=== PATIENT | male | born 1945 | race Caucasian/White ===

== ENCOUNTER 2018-12-02 06:20 | Inpatient (IN) ==
--- NOTE | 2018-11-12 15:01 | Anesthesiology Consultation ---
Date of Service November 12, 2018 Assessment & Plan (1) Encounter for pre-operative examination: Patient with ankylosing spondylitis. Discussed both GA and SAB at [facility]. CHECK BSG AM DOS. Chart Review Chart Review: Acceptable Risk for Surgery (pending pre-op labs and surgeon- ordered PCP clearance 11/29 (Yamilet)) and Patient seen in Pre Admission Testing Teaching & Discussion Instructed NPO after midnight before surgery, except medications with 15 cc of water. Medication instructions provided according to the [facility] guidelines. History Surgery Operation Date: 12/02/18 07:00 Proposed Procedures p Left Anterior Total Hip Arthroplasty - Alexis Valenet DO Height/Weight Height: 6 ft 1 in Weight: 99.1 kg Allergies Allergy/AdvReac Type Severity Reaction Status Date / Time Penicillins Allergy Unknown UNKNOWN Verified 11/04/18 10:03 REACTION CHILD codeine AdvReac Mild Nausea Verified 11/04/18 10:03 Medications Home Medications Medication Instructions Recorded Confirmed Last Taken albuterol sulfate [Ventolin HFA] 1 puff INHALATION Q6H PRN 07/15/18 11/04/18 Unknown amlodipine 5 mg PO BID 07/15/18 11/04/18 Unknown aspirin [Aspirin Low Dose] 81 mg PO HS 07/15/18 11/04/18 Unknown finasteride 5 mg PO HS 07/15/18 11/04/18 Unknown folic acid 1 mg PO QAM 07/15/18 11/04/18 Unknown gabapentin 200 mg PO HS 07/15/18 11/04/18 Unknown gemfibrozil 600 mg PO QAM 07/15/18 11/04/18 Unknown glipizide 5 mg PO QAM 07/15/18 11/04/18 Unknown hydrocodone-acetaminophen [[place]] 1 tab PO Q6H PRN 07/15/18 11/04/18 Unknown ibuprofen-diphenhydramine cit 2 cap PO HS PRN 07/15/18 11/04/18 Unknown [Advil PM] infliximab-dyyb [Inflectra] 100 mg IV DIRECTED 07/15/18 11/04/18 Unknown labetalol 100 mg PO BID 07/15/18 11/04/18 Unknown levocetirizine 5 mg PO QAM 07/15/18 11/04/18 Unknown methotrexate sodium 6 tab PO WK 07/15/18 11/04/18 Unknown multivitamin 2 tab PO QAM 07/15/18 11/04/18 Unknown olmesartan-hydrochlorothiazide 1 tab PO QAM 07/15/18 11/04/18 Unknown omeprazole 20 mg PO QAM 07/15/18 11/04/18 Unknown simvastatin 40 mg PO HS 07/15/18 11/04/18 Unknown zolpidem [Ambien] 5 mg PO HS 07/15/18 11/04/18 Unknown melatonin 10 mg PO HS 11/04/18 11/04/18 Unknown metformin 500 mg PO BID 11/04/18 11/04/18 Unknown Past Medical History Medical History Ankylosing spondylitis Asthma CONTROLLED, USING ALBUTEROL MAYBE A FEW TIMES PER MONTH AT MOST. BPH (benign prostatic hyperplasia) Chronic back pain Chronic steroid use Degenerative disc disease Diabetes mellitus, type 2 NIDDM Diverticular disease GERD (gastroesophageal reflux disease) CONTROLLED Hyperlipidemia Hypertension Osteoarthritis Peripheral neuropathy RIGHT FOOT Rheumatoid arthritis Exercise / Class Metabolic Activity II 4-5 Yardwork/Stairs/Walk up hill (DENIES CP OR SOB WITH 1 FOS, DOES STAIRS AT HOME) Past Surgical History Surgical History History of back surgery X2 LUMBAR History of cardiac cath 2002= NO STENTS History of colonoscopy History of esophagogastroduodenoscopy (EGD) History of meniscectomy of left knee History of right hip replacement Hx of arthroscopic knee surgery RIGHT Hx of left cataract extraction Hx of right cataract extraction Hx of shoulder surgery LEFT SHOULDER SLAP Hx of tonsillectomy Nausea and vomiting after administration of anesthetic agent S/P right knee arthroscopy Past Anesthesia History No Hx of Anesthesia Complications (OTHER THAN PONV) and No Family Hx of Anesthesia Complications History of PONV No Hx of Motion Sickness and History of PONV (2/2 CODEINE) Social History Smoking Status: Never smoker Do You Dip or Chew Tobacco: No Hx Alcohol Use: No Hx Substance Use: No substance use type: does not use Review of Systems Pt denies any recent chest pain, shortness of breath, palpitations, cough, fever or URI. Physical Exam Vital Signs BP: 132/70 P: 59bpm SPO2: 98% RA T: 98.0 F R: 16 ENMT Mouth: no dental restorations, no chipped teeth and no loose teeth Thyromental Distance: < 3.5 Finger Breadths (3) Mallampati Class: II Neck normal visual inspection and + limited neck extension (mild limitation) Respiratory normal respiratory effort Auscultation: lungs clear to auscultation bilaterally and + bronchovesicular breath sounds Cardiovascular Rate/Rhythm: regular rate and regular rhythm Heart Sounds: no murmur Vessels: no carotid bruit Extremities: no edema Testing Laboratory Results Urine Color Yellow 11/12/18 15:21 Urine Appearance Clear (Clear) 11/12/18 15:21 Urine pH 5.0 (4.5-7.5) 11/12/18 15:21 Ur Specific [place] 1.023 (1.000-1.030) 11/12/18 15:21 Urine Protein 2+ (Negative) H 11/12/18 15:21 Urine Glucose (UA) Negative (Negative) 11/12/18 15:21 Urine Ketones Negative (Negative) 11/12/18 15:21 Urine Nitrite Negative (Negative) 11/12/18 15:21 Ur Leukocyte Esterase Negative (Negative) 11/12/18 15:21 Urine WBC (Auto) 0 /hpf (0-5) 11/12/18 15:21 Urine RBC (Auto) 0-4 /hpf (0-4) 11/12/18 15:21 U Hyaline Cast (Auto) 1-5 /lpf (0-5) 11/12/18 15:21 U Epithel Cells (Auto) 5-10 /lpf (0-5) H 11/12/18 15:21 Urine Bacteria (Auto) Negative (Negative) 11/12/18 15:21 11/11/18 WBC: 6.91 H/H: 12.7/36.7 PLATELETS: 277 SODIUM: 139 POTASSIUM: 3.9 CHLORIDE: 109 CO2: 23 BUN: 25 CREATININE: 1.40 GLUCOSE: 62 A1C: 6.5% Electrocardiogram Date: 07/24/18 Findings: + NSR @ (66bpm) With 1st degree A-V block. Chest X-Ray Date: 07/24/18 Findings: + NAD Cervical Spine Date: 07/24/18 IMPRESSION: 1. No evidence for C1-C2 instability. 2. Mild multilevel degenerative disc disease and facet arthrosis. Partial obscuration of C7.
[2018-11-12 15:56] LABS: Appearance Urine Clear (Clear); Bacteria Urine Automated Negative (Negative); Bilirubin Urine Negative (Negative); Blood Urine Negative (Negative); Color Urine Yellow; Glucose Urine UA Negative (Negative); Ketones Urine Negative (Negative); Leukocyte Esterase Urine Negative (Negative); Nitrite Urine Negative (Negative); Protein Urine 2+ (Negative); RBC Urine Automated 0-4 /hpf (0-4); Specific Gravity Urine 1.023 (1.000-1.030); Urobilinogen Urine Negative (Negative); WBC Urine Automated 0 /hpf (0-5)
[2018-11-12 16:00] LABS: Albumin Level 4.4 gm/dl (3.4-5.0); BUN Creatinine Ratio 19.8 (10-20); Calcium 9.3 mg/dl (8.5-10.1); Creatinine Clr Calc Pharmacy 56.6 ml/min; Est GFR (African American) 55.4; Est GFR (Non-African American) 47.8; Potassium 4.5 mmol/L (3.5-5.1)
[2018-11-12 16:03] LABS: Partial Thromboplastin Time 26.5 Seconds (21.0-31.0); Prothrombin Time 10.7 Seconds (9.0-12.0)
--- NOTE | 2018-11-30 12:41 | History & Physical Report ---
Date of Service November 30, 2018 Assessment & Plan (1) Degenerative joint disease of left hip: I have indicated the patient for left anterior total hip replacement. The risks, benefits and complications of surgery were explained to the patient which include but not limited to infection, acute blood loss, DVT/PE, injury to nerves, vessels, bone, soft tissue, arthrofibrosis, chronic pain, failure of the prosthesis, hip dislocation, leg length discrepancy, need for additional surgery, cardiac and pulmonary events and . The patient wished to proceed with surgery and informed consent was obtained at this time. We will plan for Xarelto post-operatively for DVT prophylaxis. Upon discharge the patient will be discharged home with home health services. Appropriate clearances by PCP and Rheum were obtained. History of Present Illness Chief Complaint: Left hip pain/djd Primary Care Provider: Richard Woodard The patient is a 73 year old male who presents with complaints of severe left hip pain and DJD. The patient has failed outpatient conservative treatments to this point which included NSAIDs, IA corticosteroid injection, home exercise/walking program. The patient's pain and limited function have progressed to the point where they severely hinder their activities of daily living and they no longer tolerate exercise programs. They are requesting to proceed with total hip replacement surgery. Allergies Allergy/AdvReac Type Severity Reaction Status Date / Time Penicillins Allergy Unknown UNKNOWN Verified 12/02/18 06:43 REACTION CHILD codeine AdvReac Mild Nausea Verified 12/02/18 06:43 Home Medications Home Medications Medication Instructions Recorded Confirmed Type albuterol sulfate [Ventolin HFA] 1 puff INHALATION Q6H PRN 07/15/18 11/04/18 History amlodipine 5 mg PO BID 07/15/18 11/04/18 History aspirin [Aspirin Low Dose] 81 mg PO HS 07/15/18 11/04/18 History finasteride 5 mg PO HS 07/15/18 11/04/18 History folic acid 1 mg PO QAM 07/15/18 11/04/18 History gabapentin 200 mg PO HS 07/15/18 11/04/18 History gemfibrozil 600 mg PO QAM 07/15/18 11/04/18 History glipizide 5 mg PO QAM 07/15/18 11/04/18 History hydrocodone-acetaminophen [[place]] 1 tab PO Q6H PRN 07/15/18 11/04/18 History ibuprofen-diphenhydramine cit 2 cap PO HS PRN 07/15/18 11/04/18 History [Advil PM] infliximab-dyyb [Inflectra] 100 mg IV DIRECTED 07/15/18 11/04/18 History labetalol 100 mg PO BID 07/15/18 11/04/18 History levocetirizine 5 mg PO QAM 07/15/18 11/04/18 History methotrexate sodium 6 tab PO WK 07/15/18 11/04/18 History multivitamin 2 tab PO QAM 07/15/18 11/04/18 History olmesartan-hydrochlorothiazide 1 tab PO QAM 07/15/18 11/04/18 History omeprazole 20 mg PO QAM 07/15/18 11/04/18 History simvastatin 40 mg PO HS 07/15/18 11/04/18 History zolpidem [Ambien] 5 mg PO HS 07/15/18 11/04/18 History melatonin 10 mg PO HS 11/04/18 11/04/18 History metformin 500 mg PO BID 11/04/18 11/04/18 History Past Med/Surg History Medical History Ankylosing spondylitis Asthma CONTROLLED, USING ALBUTEROL MAYBE A FEW TIMES PER MONTH AT MOST. BPH (benign prostatic hyperplasia) Chronic back pain Chronic steroid use Degenerative disc disease Diabetes mellitus, type 2 NIDDM Diverticular disease GERD (gastroesophageal reflux disease) CONTROLLED Hyperlipidemia Hypertension Osteoarthritis Peripheral neuropathy RIGHT FOOT Rheumatoid arthritis Surgical History History of back surgery X2 LUMBAR History of cardiac cath 2003= NO STENTS History of colonoscopy History of esophagogastroduodenoscopy (EGD) History of meniscectomy of left knee History of right hip replacement Hx of arthroscopic knee surgery RIGHT Hx of left cataract extraction Hx of right cataract extraction Hx of shoulder surgery LEFT SHOULDER SLAP Hx of tonsillectomy Nausea and vomiting after administration of anesthetic agent S/P right knee arthroscopy Social History Preferred Language: Macedonian Communication Ability: Effective 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: No Beliefs That Will Affect Care: None Current Living Situation: Alone Other Information That Helps Us Care for You: No Feels Safe at Home: Yes Safety Concerns: Feels Safe At This Time Smoking Status: Never smoker Do You Dip or Chew Tobacco: No ; Second Hand Exposure: No ; Tobacco Cessation Education Requested by Patient: No Hx Alcohol Use: No Hx Substance Use: No Review of Systems Review of Systems: All systems reviewed & are unremarkable except as noted in HPI & below Constitutional: as per Subjective / HPI Physical Exam Physical Exam: LLE NVSI +EHL/FHL/TA/GS SILT grossly, +2 DP pulse, compartments soft NT, limited painful ROM of the hip, antalgic gait. Constitutional: WD/WN, vitals as above Eyes: PERRL, conjunctivae normal, anicteric sclerae ENMT: external ear and nose normal, oropharynx normal Neck: trachea midline, no thyromegaly Respiratory: normal respiratory effort, lungs clear to auscultation Cardiovascular: RRR, no murmur, no edema Gastrointestinal (Abdomen): normal bowel sounds, soft, nontender, no hepatosplenomegaly Musculoskeletal: no cyanosis or clubbing, extremities motor strength 5/5 Skin: no rashes, warm and dry Neurologic: patellar DTR's 2+ bilat, sensation intact Psychiatric: A+Ox3, euthymic affect Lymphatic: no cervical or axillary lymphadenopathy Results & Data Diagnostic Findings Multiple views of the hip demonstrates severe DJD with complete loss of the joint space. +osteophytes, +sclerosis, +subchondral cysts.
[~2018-12-02 06:20] MED LIST: ACETAMINOPHEN 500 MG TAB PO SCH; CeleBREX 200 MG CAP PO SCH; FAMOTIDINE 20 MG TAB PO SCH; LR 500ML BOLUS, THEN 15ML/HR IV SCH; METOCLOPRAMIDE HCL 10 MG TABLET PO SCH; ROPIVACAINE 0.5% HCL/PF 150 MG, BUPIVACAINE 0.5% MPF 30 ML, EPINEPHrine 30MG/30ML (OR U... INSTIL SCH; TRANEXAMIC ACID 1,000 MG **IV Pre-op IV SCH; dexAMETHasone 4 MG TAB PO SCH
[2018-12-02] MEDS ORDERED: TRANEXAMIC ACID 1,000 MG **IV Intra-op IV SCH (06:30)
[2018-12-02] MEDS ORDERED: VANCOMYCIN CONSULT ACTIVE PRN ×3 (06:48→13:58)
--- NOTE | 2018-12-02 06:48 | History & Physical Bridge Note ---
Date of Service December 02, 2018 History & Physical Bridge Note I have examined the patient, reviewed the History & Physical and in the interval since the performance of the History & Physical I have noted the following changes of clinical significance: no changes noted
[2018-12-02] MEDS ORDERED: VANCOMYCIN HCL 1,500 MG in SODIUM CHLORIDE 0.9% 500 ML IV STA (06:51)
[2018-12-02] MEDS ORDERED: LIDOCAINE HCL 2% 2 ML VIAL/AMP(20MG/ML) INFIL ONE (06:56)
[2018-12-02] MEDS ORDERED: ONDANSETRON INJ 2 MG/ML 2 ML VIAL ONE (06:56)
[2018-12-02] MEDS ORDERED: fentaNYL citrate 100 MCG/2 ML VIAL ONE (06:56)
[2018-12-02] MEDS ORDERED: MIDAZOLAM HCL 1 MG/ML 2ML VIAL ONE ×3 (06:56→09:42)
[2018-12-02] MEDS ORDERED: PROPOFOL IV EMULSION 10 MG/ML 20 ML VIAL IV ONE ×2 (06:56→11:29)
[2018-12-02] MEDS ORDERED: DEXAMETHASONE SOD INJ 4 MG/ML VIAL ONE (06:56)
[2018-12-02] MEDS ORDERED: BUPIVACAINE 0.5 % 5 MG/1 ML PF 10ML VIAL ONE (07:01)
[2018-12-02] MEDS ORDERED: ePHEDrine sulfate 50 MG/ML AMP IV PRN (07:49)
[2018-12-02] MEDS ORDERED: fentaNYL citrate 100 MCG/2 ML VIAL IV PRN (07:49)
[2018-12-02] MEDS ORDERED: ATROPINE SULFATE 0.1 MG/ML 10ML SYR IV PRN (07:49)
[2018-12-02] MEDS ORDERED: ONDANSETRON INJ 2 MG/ML 2 ML VIAL IV PRN ×2 (07:49→13:58)
[2018-12-02] MEDS ORDERED: ORTHO JOINT ANESTHETIC ONE (08:23)
[2018-12-02] MEDS ORDERED: BACITRACIN INJ 50,000 UNIT VIAL ONE (08:23)
--- NOTE | 2018-12-02 11:09 | Post Operative Brief Note ---
Immediate Post Op Note v1 Date of Surgery December 02, 2018 Pre & Post Diagnosis Operation Date: 12/02/18 09:10 Pre-Op Diagnosis: left hip degenerative joint disease Post-Op Diagnosis: left hip degenerative joint disease Procedure Operation Date: 12/02/18 09:10 Actual Procedures p Left Anterior Total Hip Arthroplasty(Left) - Alexis Valente DO Surgeon Alexis Valente DO Picture Enlarger Wild Mac Estimated Blood Loss 150 Findings Consistent with Post-Op Diagnosis Fluids 1000 cc LR Specimens femoral head Anesthesia Type Spinal MAC Complications none Disposition Disposition: Recovery Room Overlapping Procedure I was present for: the critical portions of procedure. I was immediately available: during the entire case. Back up surgeon: was not required during procedure.
--- NOTE | 2018-12-02 11:29 | Operative Report ---
Post Operative Report Pre & Post Diagnosis Operation Date: 12/02/18 09:10 Pre-Op Diagnosis: left hip degenerative joint disease Post-Op Diagnosis: left hip degenerative joint disease Procedure Operation Date: 12/02/18 09:10 Actual Procedures p Left Anterior Total Hip Arthroplasty(Left) - Alexis Valente DO Surgeon Alexis Valente DO Hearing Therapy Director Wild Mac Estimated Blood Loss 150 Findings Consistent with Post-Op Diagnosis Fluids 1000 cc LR Specimens Femoral head Anesthesia Type Spinal MAC Complications none Disposition Disposition: Recovery Room Indications The patient is a 73-year-old male who presents with severe progressive left hip DJD who has failed outpatient conservative treatments. I indicated the patient for a anterior total hip replacement and the risks and benefits were explained in detail which include but not limited to infection, bleeding, blood clot, damage to surrounding bone, nerves, vessels, soft tissue, hip dislocation, failure of the prosthesis, leg length discrepancy, need for additional surgery and . The patient agreed to proceed with replacement of the hip and informed consent was obtained. Appropriate clearances were obtained. Description of Procedure COMPONENTS USED: [employer] hip system: Acetabulum size 54, femur size 8 high offset, femoral head 36+0, liner 3654, acetabular screw 25 mm x 1. DESCRIPTION OF PROCEDURE: Following satisfactory spinal anesthesia, the patient was placed supine on the OR table. The right leg was placed in the well leg stone and the right leg in the traction device. The left leg was prepared with ChloraPrep and draped sterilely. A surgical timeout was performed, patient identified and site jian verified. Appropriate antibiotics were given. A standard anterior approach in the interval between the sartorius and tensor muscles was performed. Dissection was carried down through subcutaneous tissues. Electrocautery was utilized for hemostasis. Circumflex femoral vessels were identified, tied and ligated. The anterior capsular fat pad was removed and the capsulotomy was performed revealing the arthritic femoral neck and head. A femoral neck cut was made with reciprocating saw and the bone fragments removed. The acetabular self-retraining retractor was placed. Acetabular reaming was completed under fluoroscopic guidance, a 54 shell was impacted into an anatomic position and secured with a dome screw. Local anesthetic was placed and following irrigation, the polyethylene liner was placed. The femur was placed into position of external rotation, extension and adduction. Femoral canal was prepared up to the size 8 high offset. Trial reduction with a +0 neck length head showed good soft tissue tension, leg marshal ths restored, and good fit and fill of the proximal canal using fluoroscopic landmarks. The hip was dislocated. The trial component was removed. The final implant was placed. The hip was irrigated with sterile saline solution and reduced. A Betadine soak was performed. After 3 minutes, the hip was once more irrigated with copious sterile saline solution with bacitracin. [place]-incisional soft tissue was injected utilizing [place] [employer]ix which includes a combination of Ropivicaine 0.5% 150mg, Bupivicaine 0.5%/Epinephrine 1:200,000 30ml, Toradol 30mg, Dexamethasone 4mg, Ketamine 10mg, Clonidine 100mcg and NSS 30ml solution. The capsule was then closed with 1-0 Vicryl interrupted figure of eight sutures. The fascia was closed with a running suture of #1 Vicryl, the subcutaneous ti ssues with 2-0 Vicryl and the skin with a running subcuticular stitch of 3-0 V- Loc. Dermabond prineo and a dry dressing were applied. The patient tolerated the procedure well and was transported to PACU in stable condition. Due to the complex nature of the procedure, the entire surgery was performed with the operational assistance of Wild Mac PA-C. The respiratory therapy assistant, under direct supervision, was involved in the actual performance of all aspects of the surgical procedure including patient positioning, hemostasis, tissue retraction, instrument management and wound closure. I attest to the content of the Intraoperative Record and any orders documented therein. Any exceptions are noted below.
--- NOTE | 2018-12-02 11:37 | Fluoroscopy Report ---
FL hip LT 1V CLINICAL HISTORY: LEFT ANTERIOR TOTAL HIP ARTHROPLASTY COMPARISON STUDY: None. FLUOROSCOPY TIME: 47 seconds. FLUOROSCOPIC IMAGES: 2. FINDINGS: These images demonstrate anatomic alignment of the total left hip arthroplasty. There is no fracture or unexpected radiopaque foreign body. Right hip arthroplasty is noted. IMPRESSION: Expected findings following total left arthroplasty. Electronically signed by: Capo Garcia M.D. 12/02/2018 11:35 AM
--- NOTE | 2018-12-02 12:17 | Anesthesiology Progress Note ---
Date of Service December 02, 2018 Anesthesia Post Procedure Vital Signs Vital Signs: Temp Pulse Resp BP Pulse Ox 12/02/18 06:45 99.0 F 67 18 161/94 H 98 Pain Intensity Left Hip: Pain Intensity: 0 Transfer of Care Handoff Completed per policy Notes Mental Status: alert / awake / arousable and participated in evaluation Patient Amnestic to Procedure: Yes Nausea / Vomiting: adequately controlled Pain: adequately controlled Airway Patency, RR, SpO2: stable & adequate BP & HR: stable & adequate and see Notes below Hydration State: stable & adequate Neuraxial Anesthesia: was administered and sensory block is resolving Anesthetic Complications: no major complications apparent and Pt Satisfied with anesthetic care Notes: In PACU, the patientwas noted to be in 2nd degree heart block, Mobitz type 1 per EKG. The patient was otherwise asymptomatic with stable vital signs. I spoke with Dr. Mcmahan, and we agreed to place the patient in PCU for closer monitoring. The patient was understanding and otherwise satisfied with his care.
--- NOTE | 2018-12-02 12:28 | XRay Report ---
XR hip 1V LT w pelvis CLINICAL HISTORY: Postoperative evaluation. COMPARISON: Intraoperative fluoroscopic images performed earlier today. FINDINGS: These images demonstrate anatomic alignment of the total left hip arthroplasty. There is n o periprosthetic fracture or unexpected radiopaque foreign body. Acetabular screw is in place. Right hip arthroplasty is noted. IMPRESSION: Expected findings following total left hip arthroplasty. Electronically signed by: Capo Garcia M.D. 12/02/2018 12:27 PM
[2018-12-02] MEDS ORDERED: ALBUTEROL HFA 8 GM INHALER INH PRN (13:58)
[2018-12-02] MEDS ORDERED: BISACODYL 10 MG SUPP PR PRN (13:58)
[2018-12-02] MEDS ORDERED: OXYCODONE HCL IR 5 MG TAB (IMMEDIATE RELEASE) PO PRN (13:58)
[2018-12-02] MEDS ORDERED: MAGNESIUM HYDROXIDE SUSP 30 ML UDC PO PRN (13:58)
[2018-12-02] MEDS ORDERED: NALOXONE HCL 0.4 MG/1 ML VIAL/CARP IV PRN (13:58)
[2018-12-02] MEDS ORDERED: METOCLOPRAMIDE HCL INJ 5 MG/ML 2 ML VIAL IV PRN (13:58)
[2018-12-02] MEDS ORDERED: VANCOMYCIN HCL 1,500 MG in SODIUM CHLORIDE 0.9% 250 ML IV SCH (13:58)
[2018-12-02] MEDS ORDERED: HYDROmorphone INJ 0.5 MG/0.5 ML SYR IV PRN (13:58)
[2018-12-02] MEDS ORDERED: PHARMACY GLYCEMIC MGMT CONSULT PRN (14:31)
[2018-12-02] MEDS: SODIUM CHLORIDE 0.9% 1000ML 1,000 ML IV SCH ×2 (14:38→23:50)
--- NOTE | 2018-12-02 14:57 | Pharmacy Report ---
Glycemic Control Consultation - Date of Service December 02, 2018 - Scope Scope: Glycemic Pharmacist consulted by Dr Valente on 12/02/18 for glycemic control and to write orders per [facility] inpatient glycemic control protocol - Objective Weight: 100.2 kg Accuchecks BSG (last 24hrs): 12/02/18 12/02/18 12/02/18 06:50 11:48 14:25 POC Glucose 145 H 190 H 181 H - Recent Pertinent Medications Outpatient Anti-diabetic Regimen: * metformin 500 mg BID plus glipizide * A1c = 6.5 % (per patient report) Risk Factors for Insulin Resistance: * Steroids: dexamethasone 8 mg PO preop PLUS dexamethasone 4 mg topically * Recent Surgery: POD 0 * Diet: T2DM - Assessment & Plan Assessment & Plan: ASSESSMENT: * Mr Flanagan is a 73 y/o M with a PMH of well controlled T2DM. When speaking with him he reported that his HbA1C was 6.5% - primarily achieved through changes in diet (no ice cream) plus medication tweaks. * He received perioperative dexamethasone as well as dexamethasone topically. Utilized Lantus at this point since patient will most likely need continued lantus dosing during hospitalization. Utilized 1.5 x weight-based stress of 2 17 units or 25 units plus weight-based stress of 3 Novolog dosing. Overnight checks added to ensure full 24 hour glycemic control. * Of note, dinner blood sugar will be high. patient eating lunch at 1500 (leaves maybe only 2 hours between eating and dinner check) PLUS Lantus will only be given around 1500. If blood sugar is over 250 mg/dL, recommend IV insulin b olus of 5 units. * Pt is maintained on oral antidiabetic agents as an outpatient * Oral agents are not recommended for inpatient use d/t drug interactions, changing PO intake, and difficulty titrating for acute hyper/hypoglycemia. ADA recommends re-initiating outpatient oral agents 1-2 days prior to discharge if/when appropriate if they were held on admission. * Will hold oral agents for admission and utilize SQ basal bolus insulin regimen which is the recommended regimen for inpatient glycemic control. * Will initiate weight based insulin dosing for insulin elissa patient and titrate based on BSG trends. PLAN FOR INPATIENT GLYCEMIC CONTROL: * Holding outpatient oral diabetes medications * Basal insulin * Lantus 25 units SQ x 1 * Bolus insulin * NovoLog per scale ACHS or Q6hrs while NPO * Goal Range: Low 110 mg/dL - High 140 mg/dL * Correction Factor: 15 mg/dL/unit * Nutritional / Prandial insulin per carb ratio of 1 unit per 5 grams CHO consumed OUTPATIENT RECOMMENDATIONS * Continue outpatient care as before. Patient well controlled. Thank you.
[2018-12-02] MEDS: ACETAMINOPHEN 500 MG TAB PO SCH ×2 (15:05→21:28)
[2018-12-02] MEDS ORDERED: LANTUS PER UNIT CHARGE SQ ONE (15:30)
[2018-12-02] MEDS: INSULIN ASPART 100 UNITS/ML 3 ML PEN SC SCH ×3 (15:30→21:25)
--- NOTE | 2018-12-02 17:47 | Cardiology Consultation ---
Date of Consultation December 02, 2018 Assessment & Plan (1) Mobitz type 1 second degree atrioventricular block: The patient is baseline EKG from July 2018 demonstrates normal sinus rhythm with 1st degree AV block. He has a narrow complex QRS. A narrow QRS and Wenckebach activity is suggestive of AV amber disease and a more stable situation then infra-Hisian conduction disease. It is not surprising that he had Mobitz 1 conduction in the early postoperative period. He did not recall an y symptoms at that time and was likely still sedated from his anesthetic. His rhythm since that time has been normal. He has 1-1 AV conduction. He cannot recall symptoms suggestive of significant heart block. He has no history of heart disease otherwise. It is very possible that he has other periods of Mobitz 1 conduction especially during sleep. However, in the absence of symptoms or evidence of higher degree heart block, no specific therapy or evaluation is required at this time. I would agree with continuing telemetry over the course of the evening. I would not be concerned in any fashion if he has additional episodes of Mobitz 1 conduction this evening while sleeping. In the absence of any new symptoms or conduction changes he could be discharged at the discretion of his surgeon without any specific cardiac follow-up. History of Present Illness Reason for Consultation: Mobitz 1 heart block Requesting Physician: Ambrosio Attending Physician: Alexis Valente, History of Present Illness The patient is a 73-year-old gentleman with a history of rheumatoid arthritis and ankylosing spondylitis who underwent an elective left hip replacement today. It seems that the surgery itself was uncomplicated but in the early recovery. The patient was noted to have Mobitz 1 conduction on telemetry. He was subsequently admitted to the hospital for observation and Cardiology was asked to provide an opinion on his rhythm. The patient states that in the recent past he has had difficulty with ambulation due to severe left hip discomfort. He has had a previous right hip arthroplasty. He does suffer from ankylosing spondylitis and does have an element of chronic low back pain. He did not endorse symptoms of exertional chest discomfort or chest pain at rest. He has not been limited by dyspnea. He did not recall any sense of palpitations. He denies symptoms of dizziness, lightheadedness or syncope. He does report having undergone coronary angiography in 2002. This was reportedly for some symptoms of chest discomfort. He has not had a recurrence of those symptoms. His angiography was reportedly normal. Allergies Allergy/AdvReac Type Severity Reaction Status Date / Time Penicillins Allergy Unknown UNKNOWN Verified 12/02/18 06:43 REACTION CHILD codeine AdvReac Mild Nausea Verified 12/02/18 06:43 Home Medications Home Medications Medication Instructions Recorded Confirmed Type albuterol sulfate [Ventolin HFA] 1 puff INHALATION Q6H PRN 07/15/18 12/02/18 History amlodipine 5 mg PO BID 07/15/18 12/02/18 History aspirin [Aspirin Low Dose] 81 mg PO HS 07/15/18 12/02/18 History finasteride 5 mg PO HS 07/15/18 12/02/18 History folic acid 1 mg PO QAM 07/15/18 12/02/18 History gabapentin 200 mg PO HS 07/15/18 12/02/18 History gemfibrozil 600 mg PO QAM 07/15/18 12/02/18 History glipizide 5 mg PO QAM 07/15/18 12/02/18 History hydrocodone-acetaminophen [Echo] 1 tab PO Q6H PRN 07/15/18 12/02/18 History ibuprofen-diphenhydramine cit 2 cap PO HS PRN 07/15/18 12/02/18 History [Advil PM] infliximab-dyyb [Inflectra] 100 mg IV DIRECTED 07/15/18 12/02/18 History labetalol 100 mg PO BID 07/15/18 12/02/18 History levocetirizine 5 mg PO QAM 07/15/18 12/02/18 History methotrexate sodium 6 tab PO WK 07/15/18 12/02/18 History multivitamin 2 tab PO QAM 07/15/18 12/02/18 History olmesartan-hydrochlorothiazide 1 tab PO QAM 07/15/18 12/02/18 History omeprazole 20 mg PO QAM 07/15/18 12/02/18 History simvastatin 40 mg PO HS 07/15/18 12/02/18 History zolpidem [Ambien] 5 mg PO HS 07/15/18 12/02/18 History melatonin 10 mg PO HS 11/04/18 12/02/18 History metformin 500 mg PO BID 11/04/18 12/02/18 History Patient History Medical History Chronic back pain Chronic steroid use Degenerative disc disease Ankylosing spondylitis Asthma CONTROLLED, USING ALBUTEROL MAYBE A FEW TIMES PER MONTH AT MOST. BPH (benign prostatic hyperplasia) Diabetes mellitus, type 2 NIDDM Diverticular disease GERD (gastroesophageal reflux disease) CONTROLLED Hyperlipidemia Hypertension Osteoarthritis Peripheral neuropathy RIGHT FOOT Rheumatoid arthritis Surgical History History of esophagogastroduodenoscopy (EGD) S/P right knee arthroscopy History of back surgery X2 LUMBAR History of cardiac cath 2003= NO STENTS History of colonoscopy History of meniscectomy of left knee History of right hip replacement Hx of arthroscopic knee surgery RIGHT Hx of left cataract extraction Hx of right cataract extraction Hx of shoulder surgery LEFT SHOULDER SLAP Hx of tonsillectomy Nausea and vomiting after administration of anesthetic agent Social History Preferred Language: Portuguese Communication Ability: Effective Desilverizer Required: No Beliefs That Will Affect Care: None Current Living Situation: Alone Other Information That Helps Us Care for You: No Feels Safe at Home: Yes Safety Concerns: Feels Safe At This Time Smoking Status: Never smoker Do You Dip or Chew Tobacco: No ; Second Hand Exposure: No ; Tobacco Cessation Education Requested by Patient: No Hx Alcohol Use: No Hx Substance Use: No Review of Systems Review of Systems: All systems reviewed & are unremarkable except as noted in HPI & below The patient was recently standing at the bedside reported minimal discomfort associated with his surgery today. He did verbalize some concerns regarding a recent discovery of M spike. Physical Exam Physical Exam: The patient is alert and oriented. Mood and affect appeared normal. He answered all questions appropriately. HEENT: Pupils are equal and reactive to light and accommodation. Extraocular movements are intact. The sclerae are anicteric. Neuro: Cranial nerves intact Neck: Patient's neck is supple. He has palpable carotid pulses bilaterally without bruits on auscultation. There is no evidence of jugular venous distention. The thyroid is not enlarged. Lungs: Clear to auscultation bilaterally. He has good air movement without use of accessory muscles. No rales wheezes or rhonchi. Cardiac: Heart demonstrates a regular rate and rhythm. Normal S1 and S2. No murmurs on examination. Pulses: The patient has palpable radial pulses bilaterally that are equal in intensity Extremities: There was no evidence of hypoperfusion. There is no cyanosis or clubbing. Skin: I did not appreciate any rashes on examination today. Results & Data Vital Signs (Past 12 Hours) Vital Signs Temp Pulse Pulse Pulse Resp BP BP 12/02/18 16:24 37.1 C 76 18 158/84 H 12/02/18 14:12 37.1 C 67 16 152/78 H 12/02/18 13:11 65 14 12/02/18 13:10 62 12 141/72 H 12/02/18 13:05 63 11 L 140/73 12/02/18 13:01 64 14 12/02/18 13:00 65 14 152/74 H 12/02/18 12:56 61 12 12/02/18 12:55 62 14 147/76 H 12/02/18 12:51 62 14 12/02/18 12:50 62 14 149/75 H 12/02/18 12:46 60 14 12/02/18 12:45 61 14 150/74 H 12/02/18 12:41 36.9 C 63 16 12/02/18 12:40 62 19 140/74 12/02/18 12:36 63 14 12/02/18 12:35 63 14 136/74 12/02/18 12:31 59 L 14 12/02/18 12:30 61 14 147/73 H 12/02/18 12:26 60 16 12/02/18 12:25 61 14 151/74 H 12/02/18 12:20 58 L 12 149/73 H 12/02/18 12:16 60 19 12/02/18 12:15 61 13 150/78 H 12/02/18 12:11 53 L 9 L 12/02/18 12:10 63 14 143/72 H 12/02/18 12:06 55 L 9 L 12/02/18 12:05 58 L 22 138/75 12/02/18 12:01 54 L 13 12/02/18 12:00 58 L 20 137/69 12/02/18 11:56 57 L 18 12/02/18 11:55 56 L 15 137/69 12/02/18 11:51 51 L 12 12/02/18 11:50 60 14 133/75 12/02/18 11:45 62 12 131/74 12/02/18 11:43 65 13 12/02/18 11:42 36.2 C L 66 60 17 137/78 137/71 12/02/18 06:45 37.2 C 67 18 BP Pulse Ox 12/02/18 16:24 97 12/02/18 14:12 97 12/02/18 13:11 98 12/02/18 13:10 97 12/02/18 13:05 98 12/02/18 13:01 97 12/02/18 13:00 98 12/02/18 12:56 98 12/02/18 12:55 98 12/02/18 12:51 98 12/02/18 12:50 98 12/02/18 12:46 98 12/02/18 12:45 98 12/02/18 12:41 99 12/02/18 12:40 99 12/02/18 12:36 99 12/02/18 12:35 99 12/02/18 12:31 98 12/02/18 12:30 99 12/02/18 12:26 100 12/02/18 12:25 100 12/02/18 12:20 100 12/02/18 12:16 100 12/02/18 12:15 100 12/02/18 12:11 100 12/02/18 12:10 100 12/02/18 12:06 100 12/02/18 12:05 100 12/02/18 12:01 100 12/02/18 12:00 100 12/02/18 11:56 12/02/18 11:55 100 12/02/18 11:51 100 12/02/18 11:50 100 12/02/18 11:45 100 12/02/18 11:43 100 12/02/18 11:42 98 12/02/18 06:45 161/94 H 98 Laboratory Results Abnormal Lab Results 12/02/18 12/02/18 12/02/18 06:50 11:48 14:25 POC Glucose 145 H 190 H 181 H 12/02/18 16:30 POC Glucose 195 H ECG Additional Comments: EKG obtained in the postoperative period demonstrated sinus rhythm with Mobitz 1 conduction. Narrow complex QRS PG Care Time/CCT Total # of Minutes Spent Total Time Spent with Patient: Total time spent is greater than 50% in coordination of care (as documented) at patient's floor/unit and/or counseling patient:
--- NOTE | 2018-12-02 18:50 | Orthopedic Progress Note ---
Date of Service December 02, 2018 Assessment & Plan (1) Degenerative joint disease of left hip: s/p L anterior [facility] -Vanco x 24 -DVT ppx: SCDs, TEDs, Xarelto -WBAT LLE -PT/OT -PO XR demonstrates a well aligned well fixed orthpedic prothesis without fracture/dislocation -am labs -Type 1 heart block - resolved, monitor on PCU, consult placed to cardiology, recs apprecaited. -DC planning Subjective Post Operative Progress Note Patient seen sitting up in bed, comfortable, denies complaints, pain well controlled, no acute issues. Denies F/C/N/V, SOB, CP. Anesthesia reports a short run of Type 1 heart block after surgery, patient asymptomatic and sinus at this time. Review of Systems Review of Systems: All systems reviewed & are unremarkable except as noted in HPI & below Constitutional: as per Subjective / HPI Eyes: as per Subjective / HPI Physical Exam Physical Exam: LLE NVSI +EHL/FHL/TA/GS SILT grossly, +2 DP pulse, compartments soft NT, dressing cdi. Constitutional: WD/WN, vitals as above Results & Data Vital Signs (Past 12 Hours) Vital Signs Temp Pulse Pulse Resp BP BP Pulse Ox 12/02/18 16:24 37.1 C 76 18 158/84 H 97 12/02/18 14:12 37.1 C 67 16 152/78 H 97 12/02/18 13:11 65 14 98 12/02/18 13:10 62 12 141/72 H 97 12/02/18 13:05 63 11 L 140/73 98 12/02/18 13:01 64 14 97 12/02/18 13:00 65 14 152/74 H 98 12/02/18 12:56 61 12 98 12/02/18 12:55 62 14 147/76 H 98 12/02/18 12:51 62 14 98 12/02/18 12:50 62 14 149/75 H 98 12/02/18 12:46 60 14 98 12/02/18 12:45 61 14 150/74 H 98 12/02/18 12:41 36.9 C 63 16 99 12/02/18 12:40 62 19 140/74 99 12/02/18 12:36 63 14 99 12/02/18 12:35 63 14 136/74 99 12/02/18 12:31 59 L 14 98 12/02/18 12:30 61 14 147/73 H 99 12/02/18 12:26 60 16 100 12/02/18 12:25 61 14 151/74 H 100 12/02/18 12:20 58 L 12 149/73 H 100 12/02/18 12:16 60 19 100 12/02/18 12:15 61 13 150/78 H 100 12/02/18 12:11 53 L 9 L 100 12/02/18 12:10 63 14 143/72 H 12/02/18 12:06 55 L 9 L 100 12/02/18 12:05 58 L 22 138/75 100 12/02/18 12:01 54 L 13 100 12/02/18 12:00 58 L 20 137/69 100 12/02/18 11:56 57 L 18 100 12/02/18 11:55 56 L 15 137/69 12/02/18 11:51 51 L 12 100 12/02/18 11:50 60 14 133/75 100 12/02/18 11:45 62 12 131/74 100 12/02/18 11:43 65 13 100 12/02/18 11:42 36.2 C L 66 60 17 137/78 137/71 98
[2018-12-02] MEDS ORDERED: VANCOMYCIN HCL 1,500 MG in SODIUM CHLORIDE 0.9% 500 ML IV ONE (19:00)
[2018-12-02] MEDS ORDERED: FINASTERIDE 5 MG TAB PO SCH (21:00)
[2018-12-02] MEDS ORDERED: SIMVASTATIN 40 MG TAB PO SCH (21:00)
[2018-12-02] MEDS ORDERED: GABAPENTIN 100 MG CAP PO SCH (21:00)
[2018-12-02] MEDS ORDERED: SENNA 8.6 MG TAB PO SCH (21:00)
[2018-12-02] MEDS: LABETALOL HCL 100 MG TAB PO SCH (21:26)
[2018-12-02] MEDS: DOCUSATE SODIUM 100 MG CAP PO SCH (21:26)
[2018-12-02] MEDS: AMLODIPINE BESYLATE 5 MG TAB PO SCH (21:27)
[2018-12-03] MEDS: INSULIN ASPART 100 UNITS/ML 3 ML PEN SC SCH ×4 (00:13→12:18)
[2018-12-03 05:37] LABS: Basophils # (auto) 0.01 K/uL (0-0.2); Basophils % (auto) 0.1 %; Hematocrit (blood only) 32.7 % (42-52); Hemoglobin 11.6 g/dL (14.0-18.0); Immature Granulocytes # (auto) 0.03 K/uL (0.00-0.02); Immature Granulocytes % (auto) 0.2 %; Lymphocytes # (auto) 1.82 K/uL (1.2-3.4); Lymphocytes % (auto) 10.7 %; Mean Corpuscular Hgb Conc 35.5 g/dL (32-36); Mean Corpuscular Volume 90.8 fL (80-100); Mean Platelet Volume 9.5 fL (7.4-10.4); Monocytes # (auto) 1.25 K/uL (0.11-0.59); Monocytes % (auto) 7.3 %; Neutrophils # (auto) 13.96 K/uL (1.4-6.5); Neutrophils % (auto) 81.7 %; Platelet Count 207 K/uL (130-400); RDW Coefficient of Variation 14.1 % (11.5-14.5); RDW Standard Deviation 46.1 fL (36.4-46.3); White Blood Count 17.07 K/uL (4.8-10.8)
[2018-12-03] MEDS: ACETAMINOPHEN 500 MG TAB PO SCH ×2 (05:50→13:56)
[2018-12-03] MEDS ORDERED: VANCOMYCIN HCL 1,000 MG/270 ML BAG IV SCH (06:00)
[2018-12-03 06:09] LABS: BUN Creatinine Ratio 22.1 (10-20); Calcium 8.1 mg/dl (8.5-10.1); Est GFR (African American) 62.7; Est GFR (Non-African American) 54.1; Potassium 4.1 mmol/L (3.5-5.1)
[2018-12-03 06:19] LABS: Estimated Average Glucose 134 mg/dl; Hemoglobin A1C 6.3 % (4.5-5.6)
[2018-12-03] MEDS ORDERED: glipiZIDE 5 MG TAB PO SCH (07:30)
--- NOTE | 2018-12-03 07:35 | Anesthesiology Progress Note ---
Date of Service December 03, 2018 Anesthesia Post Procedure Vital Signs Vital Signs: Temp Pulse Pulse Resp BP BP BP 12/03/18 07:12 37.1 C 58 L 18 146/77 H 12/03/18 04:00 36.8 C 63 11 L 146/76 H 12/02/18 23:00 36.9 C 61 16 135/67 12/02/18 19:40 37.1 C 69 18 146/80 H 12/02/18 16:24 37.1 C 76 18 158/84 H 12/02/18 14:12 37.1 C 67 16 152/78 H 12/02/18 13:11 65 14 12/02/18 13:10 62 12 141/72 H 12/02/18 13:05 63 11 L 140/73 12/02/18 13:01 64 14 12/02/18 13:00 65 14 152/74 H 12/02/18 12:56 61 12 12/02/18 12:55 62 14 147/76 H 12/02/18 12:51 62 14 12/02/18 12:50 62 14 149/75 H 12/02/18 12:46 60 14 12/02/18 12:45 61 14 150/74 H 12/02/18 12:41 36.9 C 63 16 12/02/18 12:40 62 19 140/74 12/02/18 12:36 63 14 12/02/18 12:35 63 14 136/74 12/02/18 12:31 59 L 14 12/02/18 12:30 61 14 147/73 H 12/02/18 12:26 60 16 12/02/18 12:25 61 14 151/74 H 12/02/18 12:20 58 L 12 149/73 H 12/02/18 12:16 60 19 12/02/18 12:15 61 13 150/78 H 12/02/18 12:11 53 L 9 L 12/02/18 12:10 63 14 143/72 H 12/02/18 12:06 55 L 9 L 12/02/18 12:05 58 L 22 138/75 12/02/18 12:01 54 L 13 12/02/18 12:00 58 L 20 137/69 12/02/18 11:56 57 L 18 12/02/18 11:55 56 L 15 137/69 12/02/18 11:51 51 L 12 12/02/18 11:50 60 14 133/75 12/02/18 11:45 62 12 131/74 12/02/18 11:43 65 13 12/02/18 11:42 36.2 C L 66 60 17 137/78 137/71 Pulse Ox 12/03/18 07:12 96 12/03/18 04:00 95 12/02/18 23:00 96 12/02/18 19:40 97 12/02/18 16:24 97 12/02/18 14:12 97 12/02/18 13:11 98 12/02/18 13:10 97 12/02/18 13:05 98 12/02/18 13:01 97 12/02/18 13:00 98 12/02/18 12:56 98 12/02/18 12:55 98 12/02/18 12:51 98 12/02/18 12:50 98 12/02/18 12:46 98 12/02/18 12:45 98 12/02/18 12:41 99 12/02/18 12:40 99 12/02/18 12:36 12/02/18 12:35 12/02/18 12:31 98 12/02/18 12:30 12/02/18 12:26 12/02/18 12:25 12/02/18 12:20 12/02/18 12:16 12/02/18 12:15 12/02/18 12:11 12/02/18 12:10 12/02/18 12:06 12/02/18 12:05 12/02/18 12:01 12/02/18 12:00 12/02/18 11:56 12/02/18 11:55 12/02/18 11:51 100 12/02/18 11:50 12/02/18 11:45 12/02/18 11:43 12/02/18 11:42 98 Pain Intensity Left Hip: Pain Intensity: 0 Notes Mental Status: alert / awake / arousable and participated in evaluation Patient Amnestic to Procedure: Yes Nausea / Vomiting: adequately controlled Pain: adequately controlled Airway Patency, RR, SpO2: stable & adequate BP & HR: stable & adequate Hydration State: stable & adequate Neuraxial Anesthesia: was administered and sensory block resolved Anesthetic Complications: no major complications apparent
--- NOTE | 2018-12-03 07:38 | Orthopedic Progress Note ---
Date of Service December 03, 2018 Assessment & Plan (1) Degenerative joint disease of left hip: s/p L anterior [facility] Mobitz type 1 second degree atrioventricular block - appreciate Cardiology input. POD#1 -Vanco x 24 then dc -DVT ppx: SCDs, TEDs, Xarelto -WBAT LLE -PT/OT -am labs as noted above. Leukocytosis noted and likely due to surgical stress and preop steroids. No sx's at this point. Hgb 11.6 -DC planning - Home today if remaining stable. Supervising Physician Co-Signing Physician Notes Patient seen and examined, agree with above assessment and plan. Type 1 heart block resolved, no repeat incidents of arrhythmia. Subjective POD 1 s/p Left Anterior [facility] Brought to tele post op due to new onset Mobitz type 1 second degree atrioventricular block. Cardiology consulted and recommendations made. Pt awake and alert. No problems/sx's overnight. Did not sleep well but otherwise he feels he is doing well. Pain controlled. No complaints at present time. Review of Systems Review of Systems: All systems reviewed & are unremarkable except as noted in HPI & below Constitutional: as per Subjective / HPI Physical Exam Physical Exam: Dressings C/D/I. Thigh soft. Calves soft,NT. NV intact. Toes mobile. LLE NVSI +EHL/FHL/TA/GS SILT grossly, +2 DP pulse, compartments soft NT, dressing cdi. Constitutional: WD/WN, vitals as above Results & Data Vital Signs (Past 12 Hours) Vital Signs Temp Pulse Resp BP BP Pulse Ox 12/03/18 07:12 37.1 C 58 L 18 146/77 H 96 12/03/18 04:00 36.8 C 63 11 L 146/76 H 95 12/02/18 23:00 36.9 C 61 16 135/67 96 12/02/18 19:40 37.1 C 69 18 146/80 H 97 Laboratory Results Laboratory Results WBC 17.07 K/uL (4.8-10.8) H 12/03/18 05:21 RBC 3.60 M/uL (4.7-6.1) L 12/03/18 05:21 Hgb 11.6 g/dL (14.0-18.0) L 12/03/18 05:21 Hct 32.7 % (42-52) L 12/03/18 05:21 MCV 90.8 fL (80-100) 12/03/18 05:21 MCH 32.2 pg (25-34) 12/03/18 05:21 MCHC 35.5 g/dL (32-36) 12/03/18 05:21 RDW Std Deviation 46.1 fL (36.4-46.3) 12/03/18 05:21 RDW Coeff of Baldomero 14.1 % (11.5-14.5) 12/03/18 05:21 Plt Count 207 K/uL (130-400) 12/03/18 05:21 MPV 9.5 fL (7.4-10.4) 12/03/18 05:21 Immature Gran % (Auto) 0.2 % 12/03/18 05:21 Neut % (Auto) 81.7 % 12/03/18 05:21 Lymph % (Auto) 10.7 % 12/03/18 05:21 [place] % (Auto) 7.3 % 12/03/18 05:21 Eos % (Auto) 0.0 % 12/03/18 05:21 Baso % (Auto) 0.1 % 12/03/18 05:21 Immature Gran # (Auto) 0.03 K/uL (0.00-0.02) H 12/03/18 05:21 Neut # (Auto) 13.96 K/uL (1.4-6.5) H 12/03/18 05:21 Lymph # (Auto) 1.82 K/uL (1.2-3.4) 12/03/18 05:21 [place] # (Auto) 1.25 K/uL (0.11-0.59) H 12/03/18 05:21 Eos # (Auto) 0.00 K/uL (0-0.5) 12/03/18 05:21 Baso # (Auto) 0.01 K/uL (0-0.2) 12/03/18 05:21 PT 10.7 Seconds (9.0-12.0) 11/12/18 15:21 INR 1.0 (0.9-1.1) 11/12/18 15:21 APTT 26.5 Seconds (21.0-31.0) 11/12/18 15:21 PTT Ratio 1.0 11/12/18 15:21 Sodium 139 mmol/L (136-145) 12/03/18 05:21 Potassium 4.1 mmol/L (3.5-5.1) 12/03/18 05:21 Chloride 109 mmol/L (98-107) H 12/03/18 05:21 Carbon Dioxide 21 mmol/L (21-32) 12/03/18 05:21 Anion Gap 9.0 (3-11) 12/03/18 05:21 BUN 29 mg/dl (7-18) H 12/03/18 05:21 Creatinine 1.30 mg/dl (0.6-1.4) 12/03/18 05:21 Est Cr Clr Drug Dosing 63.0 ml/min 12/03/18 05:21 Est GFR ( Amer) 62.7 12/03/18 05:21 Est GFR (Non-Af Amer) 54.1 12/03/18 05:21 BUN/Creatinine Ratio 22.1 (10-20) H 12/03/18 05:21 Glucose 128 mg/dl (70-99) H 12/03/18 05:21 POC Glucose 140 (70-99) H 12/03/18 07:10 Estimat Average Glucose 134 mg/dl 12/03/18 05:21 Hemoglobin A1c 6.3 % (4.5-5.6) H 12/03/18 05:21 Calcium 8.1 mg/dl (8.5-10.1) L 12/03/18 05:21 Albumin 4.4 gm/dl (3.4-5.0) 11/12/18 15:21 Urine Color Yellow 11/12/18 15:21 Urine Appearance Clear (Clear) 11/12/18 15:21 Urine pH 5.0 (4.5-7.5) 11/12/18 15:21 Ur Specific [place] 1.023 (1.000-1.030) 11/12/18 15:21 Urine Protein 2+ (Negative) H 11/12/18 15:21 Urine Glucose (UA) Negative (Negative) 11/12/18 15:21 Urine Ketones Negative (Negative) 11/12/18 15:21 Urine Blood Negative (Negative) 11/12/18 15:21 Urine Nitrite Negative (Negative) 11/12/18 15:21 Urine Bilirubin Negative (Negative) 11/12/18 15:21 Urine Urobilinogen Negative (Negative) 11/12/18 15:21 Ur Leukocyte Esterase Negative (Negative) 11/12/18 15:21 Urine WBC (Auto) 0 /hpf (0-5) 11/12/18 15:21 Urine RBC (Auto) 0-4 /hpf (0-4) 11/12/18 15:21 U Hyaline Cast (Auto) 1-5 /lpf (0-5) 11/12/18 15:21 U Epithel Cells (Auto) 5-10 /lpf (0-5) H 11/12/18 15:21 Urine Bacteria (Auto) Negative (Negative) 11/12/18 15:21 Blood Type B Positive 11/12/18 15:21 Antibody Screen NEGATIVE 11/12/18 15:21
[2018-12-03] MEDS ORDERED: OLMESARTAN MEDOXOMIL 40 MG TAB PO SCH (09:00)
[2018-12-03] MEDS ORDERED: LANTUS PER UNIT CHARGE SQ ONE (09:00)
[2018-12-03] MEDS ORDERED: GEMFIBROZIL 600 MG TAB PO SCH (09:00)
[2018-12-03] MEDS ORDERED: hydroCHLOROthiazide 25 MG TAB PO SCH (09:00)
[2018-12-03] MEDS ORDERED: FOLIC ACID 1 MG TAB PO SCH (09:00)
[2018-12-03] MEDS ORDERED: NON-FORMULARY MEDICATION (Olmesartan-Hydrochlorothiazide 1 TAB) PO SCH (09:00)
[2018-12-03] MEDS ORDERED: PANTOprazole 40 MG TAB PO SCH (09:00)
[2018-12-03] MEDS ORDERED: MULTIVITAMIN TAB PO SCH (09:00)
[2018-12-03] MEDS ORDERED: RIVAROXABAN 10 MG TABLET PO SCH (09:00)
[2018-12-03] MEDS: LABETALOL HCL 100 MG TAB PO SCH (09:03)
[2018-12-03] MEDS: AMLODIPINE BESYLATE 5 MG TAB PO SCH (09:03)
[2018-12-03] MEDS: DOCUSATE SODIUM 100 MG CAP PO SCH (09:06)
[2018-12-04] MEDS ORDERED: METFORMIN HCL 500 MG TAB PO SCH (08:00)
--- NOTE | 2018-12-04 21:42 | Discharge Summary ---
Date of Service December 04, 2018 Admission HPI Per Admitting Provider The patient is a 73 year old male who presents with complaints of severe left hip pain and DJD. The patient has failed outpatient conservative treatments to this point which included NSAIDs, IA corticosteroid injection, home exercise/walking program. The patient's pain and limited function have progressed to the point where they severely hinder their activities of daily living and they no longer tolerate exercise programs. They are requesting to proceed with total hip replacement surgery. Principal Diagnosis Left anterior total hip replacement Discharge Exam LLE NVSI +EHL/FHL/TA/GS SILT grossly, +2 DP pulse, compartments soft NT, dressing cdi. Constitutional WD/WN, vitals as above Discharge Data Allergies Allergy/AdvReac Type Severity Reaction Status Date / Time Penicillins Allergy Unknown UNKNOWN Verified 12/02/18 06:43 REACTION CHILD codeine AdvReac Mild Nausea Verified 12/02/18 06:43 Consultations 12/02/18 15:24 Consult Cardiology Routine 12/03/18 08:00 Consult Case Management - Discharge Planning Routine Procedures Performed Operation Date: 12/02/18 09:10 Actual Procedures p Left Anterior Total Hip Arthroplasty(Left) - Alexis Valente DO Ordered Studies 12/02/18 07:00 FL fluoroscopy <1hr Routine FL hip LT 1V Routine Hospital Course (1) Degenerative joint disease of left hip: The patient is a 73 -year-old male who presents with long standing history of severe left hip DJD and failed outpatient conservative treatments including NSAIDs, bracing, injections and home walking/exercise program. The patient's symptoms have progressed to the point where it has been difficult to perform even normal activities of daily living. I indicated the patient for a left anterior total hip arthroplasty, the risks, benefits and complications of the procedure include but not limited to infection, bleeding, damage to bone, nerves, vessels, surrounding soft tissue, may develop blood clots, loss of function, leg length discrepancy, dislocation, failure of the components, loosening of the components, the need for additional surgery and . The patient wished to proceed with surgery at this time and informed consent was obtained. Hospital Course: On 12/02/18 the patient was taken to the operating room, adequate anesthesia administered and underwent a left anterior total hip arthroplasty. The patient tolerated the procedure well and was taken to the PACU in stable condition. Post-operatively the patient was started on a DVT ppx medication and given appropriate IV antibiotics. Consults were placed to cardiology, physical therapy, occupational therapy and case management. Post-operatively the patient had a short episode of type 1 heart block. The patient was monitored on tele and consultation placed and seen by cardiology. The patient had no further episodes of arrhythmia and no further workup by cardiology indicated. On POD#1, the patient did well overnight and their pain was well controlled. Labs were drawn and the Hgb was 11.6. The patient progressed well with PT. Dressings were changed at this time and the incision was clean, dry and intact. The patients hospital stay was relatively uneventful and they were deemed stable by the orthopedic team and consultants to be discharged home with on 12/03/18. Discharge Instructions: Upon discharge the patient may weight bear as tolerates through their operative extremity. They were instructed to keep the incision clean and dry at all times. The patient may shower but should not submerge the incision, avoid bathing, pools and hot tubes. The patient was given a script for pain medication and should take as instructed. The patient was given a script for DVT ppx Xarelto and should take as directed. The patient was instructed to not drive or travel for long distances until cleared to do so. If the patient develops any symptoms of fevers, chills, nausea, vomiting, increased redness, swelling, pain or drainage from the surgical site, they should notify the office and/or proceed to the nearest emergency room. The patient should follow up in 10-14 days after surgery for their routine post-operative follow-up appointment and should call the office to confirm the date and time. s/p L anterior [facility] type 1 second degree atrioventricular block - appreciate Cardiology input. POD#1 -Vanco x 24 then dc -DVT ppx: SCDs, TEDs, Xarelto -WBAT LLE -PT/OT -am labs as noted above. Leukocytosis noted and likely due to surgical stress and preop steroids. No sx's at this point. Hgb 11.6 -DC planning - Home today if remaining stable. Total Time Total Time Spent Total Time Spent (In Minutes): 30 minutes Total Time Includes: Examination of the Patient, Discharge Planning, Medication Reconciliation and Communication With Other Providers Discharge Plan Discharge Items Patient Disposition: Home - Home Health Services Reason For Visit: LEFT HIP OSTEOARTHRITIS Condition on Discharge: Good Activity: Per Instructions section Lifting: Wait until after follow-up appointment Bathing: Keep incision dry Bathing Comment: No bathing, pools or hot tubs. Sexual Activity: Wait until after follow-up appointment Exercise/Sports: Wait until after follow-up appointment Weightbearing: Left weightbearing Non-emergency contact: Primary Care Provider and Surgeon Follow-up/Referrals: Richard Woodard DO [Primary Care Provider] - Addtl Toggler Provider Instructions: ACTIVITY RECOMMENDATIONS: SELF CARE INSTRUCTIONS AFTER TOTAL HIP REPLACEMENT : Direct Anterior Approach Until the incision and soft tissues around your hip have healed, there is a possibility that the hip prosthesis could dislocate. A. Hip flexion ( Up & Down out of chair or steps ) may be difficult. This is normal. B. Numbness in front of the thigh is also normal for a few weeks. C. Use hand rails when walking on stairs. D. Wear low heeled shoes with non-slip soles. E. Be sure that your floors are free of things that could trip you - throw rugs, electrical cords, small objects. Avoid wet and waxed floors, especially with crutches and canes. F. Try to walk several times a day with rest periods between. G. Continue with all the exercises taught to you in the hospital. Again, make walking a part of your daily routine. SPECIAL CARE INSTRUCTIONS: VERY IMPORTANT TO READ AND REVIEW A. You may still be at risk for phlebitis and blood clots. 1. Wear surgical stockings (EDUAR hose) for 2 weeks after surgery to improve circulation and reduce swelling. 2. Take Xarelto 10mg daily for 4 weeks or as directed by your doctor. This is your blood thinner. 3. High risk patients may be prescribed a stronger blood thinner if necessary. 4. If you are on Coumadin normally, your family doctor/lab support service tech should monitor your blood work. Expect a phone call the day of or the day after bloodwork is drawn to adjust your dosage. B. You must take antibiotics before having dental work, bladder, bowel and other surgery. Your doctor will provide you with a permanent card to carry describing precautions. C. Call [facility] if you have a fever, redness or swelling around the incision, cloudy drainage from incision, or sudden increase in pain in your hip, not relieved by your regular pain medication. D. Please call the office at if you have any concerns or questions about your operation or recovery. * YOU MAY SHOWER, NO TUB BATHS UNTIL CLEARED BY YOUR DOCTOR. - Keep an extra close eye on the top portion of your incision. Be sure to keep clean & dry. * WEAR EDUAR HOSE 20 HOURS PER DAY FOR 2 WEEKS. * YOU MAY PROGRESS FROM A WALKER, TO A CANE, TO INDEPENDENT AT YOUR OWN PACE. * MOST PATIENTS WILL HAVE HOME NURSING FOR THERAPY. IF YOU DECIDE TO DO OUTPATIENT PHYSICAL THERAPY, PLEASE SCHEDULE THIS 3 TIMES PER WEEK. * DERMABOND Prineo- This is a mesh tape dressing that is covered with glue. It should remain in place until the incision is properly healed, usually 10-14 days. This dressing is designed to naturally slough off. You may trim the excess mesh tape as it peels off. Incision may be briefly wet in a shower. Dry immediately by blotting with a clean, dry towel. Do not bath or swim until instructed by your doctor. Do not scratch, rub, or pick at the dressing. Do not apply any topical ointments or lotions until dressing is completely removed and/or instructed by your doctor. There may be a small piece of suture material at one end of your incision. Do not pull or trim this. If it is bothersome or catching on clothing, you may cover it with a band-aid. FOLLOW UP VISIT: If appointment is not already scheduled: Please call [facility] to make a follow-up appointment for 2 weeks after your surgery at . Stand-Alone Forms: My [facility] Medications and DC Order Prescriptions: New Xarelto 10 mg Tablet 10 mg PO DAILY 28 Days Qty: 28 RF: 0 acetaminophen [Tylenol Extra Strength] 500 mg Tablet 1,000 mg PO Q8 PRN (Reason: Pain and/or fever) Qty: 90 RF: 0 oxycodone 5 mg Tablet 5 mg PO Q6H MDD 6 tabs PRN (Reason: pain) Qty: 30 RF: 0 sennosides [Senokot] 8.6 mg Tablet 17.2 mg PO HS PRN (Reason: Constipation) Qty: 28 RF: 0 Continued multivitamin Tablet 2 tab PO QAM RF: 0 amlodipine 5 mg Tablet 5 mg PO BID RF: 0 simvastatin 40 mg Tablet 40 mg PO HS RF: 0 gemfibrozil 600 mg Tablet 600 mg PO QAM RF: 0 omeprazole 20 mg Capsule,Delayed Release(Dr/Ec) 20 mg PO QAM RF: 0 folic acid 1 mg Tablet 1 mg PO QAM RF: 0 zolpidem [Ambien] 5 mg Tablet 5 mg PO HS RF: 0 gabapentin 100 mg Capsule 200 mg PO HS RF: 0 labetalol 100 mg Tablet 100 mg PO BID RF: 0 albuterol sulfate [Ventolin HFA] 90 mcg/actuation Hfa Aerosol Inhaler 1 puff INHALATION Q6H PRN (Reason: Shortness Of Breath) RF: 0 finasteride 5 mg Tablet 5 mg PO HS RF: 0 glipizide 5 mg Tablet 5 mg PO QAM RF: 0 olmesartan-hydrochlorothiazide 40-25 mg Tablet 1 tab PO QAM RF: 0 levocetirizine 5 mg Tablet 5 mg PO QAM RF: 0 metformin 500 mg Tablet 500 mg PO BID RF: 0 melatonin 10 mg Capsule 10 mg PO HS RF: 0 Discontinued hydrocodone-acetaminophen [[place]] 5-325 mg Tablet 1 tab PO Q6H PRN (Reason: Pain) RF: 0 aspirin [Aspirin Low Dose] 81 mg Tablet,Delayed Release (Dr/Ec) 81 mg PO HS RF: 0 methotrexate sodium 2.5 mg Tablet 6 tab PO WK RF: 0 Inflectra 100 mg Recon Soln 100 mg IV DIRECTED RF: 0 ibuprofen-diphenhydramine cit [Advil PM] 200-38 mg Tablet 2 cap PO HS PRN (Reason: Pain) RF: 0 Discharge Orders: Discharge Order (Routine); Ordered 12/03/18 Ordered By: Wild Yoder/Other Patient Handouts: Hypoglycemia, Diabetes Type 2 Coping, Repla cement Knee Total, Replacement Knee After Hospital Admission Data Admit Date/Time: 12/02/18 12:06 Attending Provider: Alexis Valente Admit Provider: Alexis Valente Primary Care Provider: Richard Woodard Other Providers: Odell Puente Other Interventions: Discharge Summary Assessment (RN) Last Done: 12/03/18 13:39 DC Date/Time DO NOT enter until pt leaves facility: 12/03/18 14:31
== END 2018-12-03 14:31 | disposition home health service (06) | DRG 470 ==
LOC: ASU 06:20 → 2E 12:06